=== PATIENT | male | born 1970 | race Caucasian/White ===

== ENCOUNTER 2021-08-28 19:57 | Emergency (ER) | payer OTHER, SELFPAY ==
[2021-08-28 19:58] VITALS: BP 132/80; PULSE 63; RESP 16; TEMP 36.5; O2SAT 96; BMI 25.7
--- NOTE | 2021-08-28 20:13 | EX.ED.UPPERE ---
HPI History of Present Illness Chief Complaint: Laceration Informant: patient Occured/Mechanism Comment: accidentally injured on turf keeper blade Onset/Context/Timing Onset: Today (JPTA) Context: Sudden Onset Timing: Continuous Quality of Pain: - (sore) Location: R middle and ring fingers Current Severity: Mild Maximum Severity: Moderate Worsened by: palpation Relieved by: leaving alone Associated Symptoms Associated Symptoms: Negative for Parasthesia, Weakness or Loss of Funtion Narrative Narrative: Patient was mowing his lawn and trying to pull a clump of grass and out from near the outlet, and accidentally hit the spinning blade, sustained injury to the right middle and ring fingertips. Tetanus Immunization: Unknown PFSH PFS Medical History no medical history no medical history Home Medications esomeprazole magnesium 40 mg capsule,delayed release 1 cap PO DAILY 08/28/21 [History Last Taken Unknown] cefadroxil 500 mg capsule 500 mg PO BID #10 caps 08/29/21 [Rx Last Taken Unknown] Allergy/AdvReac Type Severity Reaction Status Date / Time No Known Allergies Allergy Verified 08/28/21 20:03 Family History Other Diabetes Social History Smoking Status: Never smoker alcohol intake: current alcohol intake frequency: holidays/special occasions only ROS ROS ED Constitutional Constitutional ED: Denies chills or fever(s) Musculoskeletal Musculoskeletal: Reports extremity pain; Denies neck pain Integumentary Reports wounds; Denies Abrasions or rash Neurologic Neurologic: Denies paresthesias or weakness EXAM Physical Exam Const Vital Signs: 08/28/21 19:58 Temperature 97.7 F L Temperature Source Temporal Pulse Rate 63 Respiratory Rate 16 Blood Pressure 132/80 H Blood Pressure Mean 97 Pulse Ox 96 Oxygen Delivery Method Room Air Positive well nourished and well developed General Appearance ED: well developed and NAD Neck full ROM and supple Back/Spine normal ROM and normal to inspection Extremity Extremity Narrative: Macerated irregular injuries to the skin of the right middle and ring fingertips. All tendon function intact. Nails intact, no subungual hematoma or disruption of the nailbed. Neuro oriented x3, no focal motor deficits and no sensory deficits noted Sensorium / Orientation: alert Psych mental status grossly normal and thought process normal Skin Skin Narrative: Irregular lacerations without significant tissue loss to the tips of right middle and ring fingers. 2.5 cm ring finger total length, 3 cm middle finger total length. middle finger injury just involves the distal nail bed at ulnar aspect without damage to nail. Rashes: no rashes MDM MDM MDM Narrative Medical decision making narrative: Three-view x-ray series of the right hand to my interpretation shows a minor nondisplaced tuft fracture at the end of the ring finger distal phalanx. Radiology in agreement. No other signs of fracture or obvious radiographic contamination, although clinically it was contaminated with pieces of grass. I was able to remove all contamination that was visible. The injuries were irrigated under high-pressure sterile saline irrigation. The macerated lacerations were swollen, I was able to pull all the skin edges together as best possible, dressed with bacitracin and a bulky gauze dressing, I do not think he needs a splint for this minor open tuft fracture, but I am placing him on antibiotics, Duricef for 5 days. We will have him follow-up with orthopedics locally. Procedures Lacerations R middle finger: Length: 3 cm Depth: Sub Q Shape: Stellate Prep: Sterile Conditions and Chlorhexadine Laceration repair: Lidocaine (1% 1cc), Lidocaine with epi (topical LET), Skin sutures and Wound explored (no bone exposed) Irrigated (ml): 60 Number of Sutures/[place]enn[place]: 8 Suture Information: Ethilon, Simple and 5-0 Comment: including 2 sutures through nail to hold thin segments in place R ring finger: Length: 2.5 cm Depth: Sub Q Shape: Stellate Prep: Sterile Conditions and Chlorhexadine Laceration repair: Irrigated, Lidocaine (1%, 1cc), Lidocaine with epi (topical LET), Local and Skin sutures Irrigated (ml): 60 Number of Sutures/[place]: 9 Suture Information: Ethilon, Simple and 5-0 Discharge Plan Triage Chief Complaint: Laceration Other Complaint: Upper Extremity Injury ED Provider: Edgard Medina Dx/Rx/DC Orders Clinical Impression: Laceration of right middle finger, Laceration of right ring finger, Nondisplaced fracture of distal phalanx of right ring finger, initial encounter for open fracture, Immunization, tetanus-diphtheria Instructions: ED Open Hand Fracture (Adult), ED Laceration, Hand: All Closures Prescriptions: New cefadroxil 500 mg capsule 500 mg PO BID Qty: 10 0RF No Action esomeprazole magnesium 40 mg capsule,delayed release(DR/EC) 1 cap PO DAILY Label Comments: TAKE 1 CAPSULE BY MOUTH ONCE DAILY ONE HOUR BEFORE EATING Primary Care Provider: Dexter Lewis Referrals: Kevyn Washington MD [STAFF PHYSICIAN] - 1-2 Weeks Dexter Lewis MD [Primary Care Provider] - Activity Restrictions/Additional Instructions: sutures should be ready to come out in approx 1.5-2 wks; follow up with ortho in that timeframe. Disposition Disposition: Home, Self Care
--- NOTE | 2021-08-28 20:14 | RAD_ITS ---
STUDY: XR Hand Min 3 Views REASON FOR EXAM: Male, 51 years old. injury; attn: distal ph of middle, ring fingers TECHNIQUE: XR Hand Min 3 Views RIGHT COMPARISON: None. FINDINGS: Normal radiocarpal articulation. Normal distal radioulnar joint. Normal visualized carpal bones. Normal carpal articulations Normal carpometacarpal articulation of the thumb. Normal second through fifth carpometacarpal joints. Normal metacarpi. Normal metacarpophalangeal joint of the thumb. Normal interphalangeal joint of the thumb. Normal proximal and distal phalanges of the thumb. Normal metacarpophalangeal joints of the second through fifth fingers. Soft tissue avulsive injury of the tip of the third and fourth digit. Fracture of the tuft of the fourth digit. Open fracture of the fourth digit is of concern. RAD/Hand Min 3 Views IMPRESSION: Soft tissue avulsive injury of the tip of the third and fourth digit. Fracture of the tuft of the fourth digit. Open fracture of the fourth digit is of concern. Electronically Signed: Hema Parsons MD at 20:44 EDT ,
[2021-08-28] MEDS: Diphth,Pertuss(Acell),Tet Vac 0.5 ML Vial IM (20:28)
[2021-08-28] MEDS: Lidocaine/Epi/Tetracaine 50 ML 1 APPLIC TOPICAL (20:33)
[2021-08-29 01:16] VITALS: BP 145/99
== END 2021-08-29 01:17 | disposition home or self-care (01) ==
PROVIDERS: Emergency Provider Emergency Medicine; PCP Family Medicine; Visit Provider Emergency Medicine
DX: S61.212A Laceration without foreign body of right middle finger without damage to nail, initial encounter (principal); S62.664A Nondisplaced fracture of distal phalanx of right ring finger, initial encounter for closed fracture; Z23 Encounter for immunization; X58.XXXA Exposure to other specified factors, initial encounter
CPT/HCPCS: 12002; 73130; 90471; 90715; 99284